=== PATIENT | male | born 1940 | race Caucasian/White ===

== ENCOUNTER → 2016-11-08 | Outpatient (CLI) | payer OTHER, MEDICARE ==
[~2016-11-08] MED LIST: ALL300 PO; ASPCH81 PO; CHOL100010 PO; CLR10 PO; CRG25 PO; CYAN10005 PO; CYAN30SU PO; DOCU-94 PO; FINA5TAB4 PO; GLC500 PO; HYG/25 PO; L-ME1CAP3 PO; MECL1TAB42 PO; MULT60CA PO; NMN10 PO; PSYL58.636 PO
[2016-11-08 10:59] LABS: MEAN CELL VOLUME 93.8 fL (80-100); MEAN CORPUSCULAR HEMOGLOBIN 32.5 pg (25-34); MEAN CORPUSCULAR HGB CONC 34.6 g/dl (32-36); MEAN PLATELET VOLUME 10.6 fL (7.4-10.4); PLATELET COUNT 227 K/uL (130-400); RED BLOOD COUNT 4.16 M/uL (4.7-6.1); WHITE BLOOD COUNT 12.28 K/uL (4.8-10.8)
[2016-11-08 11:17] LABS: BLOOD UREA NITROGEN 31 mg/dl (7-18); BUN/CREATININE RATIO 19.6 (10-20); CALCIUM 9.3 mg/dl (8.5-10.1); CARBON DIOXIDE 29 mmol/L (21-32); CHLORIDE 103 mmol/L (98-107); GLUCOSE 161 mg/dl (70-99); MAGNESIUM 1.6 mg/dl (1.8-2.4); PHOSPHORUS 2.8 mg/dl (2.5-4.9); POTASSIUM 4.1 mmol/L (3.5-5.1); SODIUM 137 mmol/L (136-145)
[2016-11-08 11:17] LABS: URINE APPEARANCE CLOUDY (CLEAR); URINE BILIRUBIN NEG (NEG); URINE COLOR DK YELLOW; URINE EPITHELIAL CELL AUTO >30 /lpf (0-5); URINE NITRITE NEG (NEG); URINE SPECIFIC GRAVITY 1.021 (1.000-1.030); UROBILINOGEN NEG (NEG)
[2016-11-08 11:33] LABS: MANUAL MICROSCOPIC REQUIRED? NO; REVIEW REQ? NO
== END | disposition home or self-care (01) ==
LOC: C.LABBC 09:21
PROVIDERS: ATTEND Internal Medicine Nephrology
DX: N18.3 Chronic kidney disease, stage 3 (moderate) (principal)

== ENCOUNTER → 2016-11-14 | Outpatient (CLI) | payer OTHER, MEDICARE ==
[2016-11-14 10:53] LABS: BASO % 0.2 %; BASO ABS # 0.03 K/uL (0-0.2); COMPLETE YES; EOS % 3.4 %; HEMATOCRIT 39.3 % (42-52); IG% 1.6 %; LYMPH % 12.9 %; LYMPH ABS # 1.65 K/uL (1.2-3.4); MEAN CELL VOLUME 95.6 fL (80-100); MEAN CORPUSCULAR HEMOGLOBIN 32.4 pg (25-34); MEAN CORPUSCULAR HGB CONC 33.8 g/dl (32-36); MEAN PLATELET VOLUME 10.6 fL (7.4-10.4); MONO % 7.8 %; NEUT % 74.1 %; PLATELET COUNT 228 K/uL (130-400); RED BLOOD COUNT 4.11 M/uL (4.7-6.1)
--- NOTE | 2016-11-14 11:21 | DIAGNOSTIC IMAGING REPORT ---
ABDOMEN 2VIEW W/PA CHEST RTN CLINICAL HISTORY: Rectal bleeding COMPARISON STUDY: 06/25/2015 FINDINGS: The erect chest reveals no free intraperitoneal air. There is no lobar consolidation. There is mild basilar interstitial thickening.] Supine views the abdomen reveal no abnormally dilated loops of large or small bowel. There are no transition zones indicate bowel obstruction. There is a right pelvic basin calcification, likely representing a phlebolith. IMPRESSION: No evidence of bowel obstruction. No evidence of free air. Electronically signed by: Ari Kearney M.D. 11/14/2016 11:19 AM Dictated Date/Time: 11/14/2016 11:19 AM
== END | disposition home or self-care (01) ==
LOC: C.RAD1850 09:37
PROVIDERS: ATTEND Family Medicine
DX: K62.5 Hemorrhage of anus and rectum (principal)

== ENCOUNTER → 2017-02-16 | Outpatient (CLI) | payer OTHER, MEDICARE ==
[2017-02-16 16:56] LABS: ALT/SGPT 19 U/L (12-78); BLOOD UREA NITROGEN 35 mg/dl (7-18); BUN/CREATININE RATIO 21.6 (10-20); CALCIUM 9.7 mg/dl (8.5-10.1); CARBON DIOXIDE 28 mmol/L (21-32); CHLORIDE 103 mmol/L (98-107); GLUCOSE 125 mg/dl (70-99); POTASSIUM 4.9 mmol/L (3.5-5.1); SODIUM 138 mmol/L (136-145)
[2017-02-16 16:59] LABS: CHOLESTEROL 146 mg/dl (0-200); CHOLESTEROL/HDL RATIO 4.2; HDL CHOLESTEROL 35 mg/dl; LDL CHOLESTEROL CALCULATED 80 mg/dl; TRIGLYCERIDES 154 mg/dl (0-150); VERY LOW DENSITY LIPOPROT CALC 31 mg/dl
[2017-02-17 06:04] LABS: ESTIMATED AVERAGE GLUCOSE 154 mg/dl; HA1C FLAG Normal (Normal)
== END ==
LOC: C.LABBC 12:40
PROVIDERS: ATTEND Family Medicine
DX: E11.9 Type 2 diabetes mellitus without complications (principal)

== ENCOUNTER → 2017-04-10 | Outpatient (CLI) | payer OTHER, MEDICARE ==
[2017-04-10 14:16] LABS: BLOOD UREA NITROGEN 31 mg/dl (7-18)
== END | disposition home or self-care (01) ==
LOC: C.LABBC 11:29
PROVIDERS: ATTEND Family Medicine
DX: E11.9 Type 2 diabetes mellitus without complications (principal)

== ENCOUNTER → 2017-04-15 | Day surgery (SDC) | payer OTHER, MEDICARE ==
[2017-04-14 13:12] VITALS: Ht 175.3 cm; Wt 145.0 kg
[~2017-04-15] VITALS: Ht 175.3 cm; Wt 145.0 kg
[~2017-04-15] MED LIST changes: -ASPCH81 PO; -CYAN10005 PO; -L-ME1CAP3 PO; +LIDOCAINE HCL 2% 2 ML VIAL (20MG/ML) ONE; +PROPOFOL IV EMULSION 10 MG/ML 20 ML VIAL IV ONE; +SODIUM CHLORIDE 0.9% 500ML 500 ML IV ONE
--- NOTE | 2017-04-15 11:35 | Endo History and Physical ---
History & Physical Date of Service: Apr 15, 2017. Chief Complaint: rectal bleeding Referring Physician: Dr. Cordero History of Present Illness 76 yo CM who presents for colonoscopy secondary to rectal bleeding. Past Medical History Diabetes, Arthritis, Pulmonary Emboli, Reflux, Cancer, CHF, Hypertension, Kidney Disease, Other, Depression Past Surgical History Hx Cardiac Surgery: No Hx Internal Defibrillator: No Hx Pacemaker: No Hx Abdominal Surgery: Yes (Cholecystectomy,) Hx of Implantable Prosthesis: No Hx Post-Op Nausea and Vomiting: No Hx Cancer Surgery: No Hx Thoracic Surgery: No Hx Orthopedic: Yes (B/L TKA, L wrist ganglion) Hx Urinary Tract Surgery: No Family History None Social History Smoking Status: Former Smoker Hx Substance Use: No Hx Alcohol Use: No Allergies Coded Allergies: ARPIT Inhibitors (Verified Allergy, Mild, Rash, 04/14/17) Diltiazem (Verified Allergy, Mild, UNSURE, 04/14/17) Latex1 -Allergic Contact Dermititis (Verified Allergy, Mild, HIVES, ) Warfarin (Verified Adverse Reaction, Mild, Emesis, 04/14/17) Oxycodone (Verified Adverse Reaction, Unknown, Hallucinations, 04/14/17) Current Medications Reported Home Medications Medications Dose Route/Sig Max Daily Dose Days Date Category Metamucil Fiber (Psyllium) 51.7 % Wilmer 1 Tab PO DAILY 04/14/17 Reported Preservision Areds 2 (Multiple Vitamins W/ Minerals) 1 Cap Cap 1 Cap PO BID 04/14/17 Reported Colace (Docusate Sodium) 100 Mg Cap 1 Cap PO TID 04/14/17 Reported Meclizine Hcl 25 Mg Tab 1 Tab PO TID PRN 10 04/14/17 Reported Namenda (Memantine) 10 Mg Tab 10 Mg PO QPM 04/14/17 Reported B-12 (Cyanocobalamin) 500 Mcg Sub 500 Mcg PO BID 04/14/17 Reported Proscar (Finasteride) 5 Mg Tab 5 Mg PO QAM 06/25/15 Reported Hygroton (Chlorthalidone) 25 Mg Tab 25 Mg PO QAM 03/13/15 Reported Claritin (Loratadine) 10 Mg Tab 10 Mg PO QAM 07/28/14 Reported Vitamin D (Cholecalciferol) 1,000 Inter.unit Tab 2,000 Inter.unit PO QAM 07/28/14 Reported Metformin HCl 500 Mg Tab 500 Mg PO BID 07/28/14 Reported Allopurinol 300 Mg Tab 300 Mg PO QAM 07/28/14 Reported Carvedilol 25 Mg Tab 25 Mg PO BID 07/28/14 Reported Vital Signs Weight (Kilograms): 145 Height (Feet): 5 Height (Inches): 9 Physical Exam General Appearance: WD/WN, no apparent distress Respiratory/Chest: Auscultation: breath sounds normal Cardiovascular: Heart Auscultation: RRR Abdomen: Bowel Sounds: normal Inspection & Palpation: soft, non-distended, no tenderness, guarding & rebound Assessment and Plan Assessment: 76 yo CM who presents for colonoscopy secondary to rectal bleeding. Plan: Proceed with colonoscopy.
--- NOTE | 2017-04-15 12:54 | GI REPORT ---
Procedure Date: 04/15/2017 12:15 PM Procedure: Colonoscopy Indications: Rectal bleeding Medicines: Monitored Anesthesia Care Complications: No immediate complications. Estimated Blood Loss: Estimated blood loss: none. Procedure: Pre-Anesthesia Assessment: - Prior to the procedure, a History and Physical was performed, and patient medications and allergies were reviewed. The patient's tolerance of previous anesthesia was also reviewed. The risks and benefits of the procedure and the sedation options and risks were discussed with the patient. All questions were answered, and informed consent was obtained. Prior Anticoagulants: The patient has taken no previous anticoagulant or antiplatelet agents. ASA Grade Assessment: III - A patient with severe systemic disease. After reviewing the risks and benefits, the patient was deemed in satisfactory condition to undergo the procedure. After I obtained informed consent, the scope was passed under direct vision. Throughout the procedure, the patient's blood pressure, pulse, and oxygen saturations were monitored continuously. The On-site loaner was introduced through the anus and advanced to the terminal ileum. The colonoscopy was performed without difficulty. The patient tolerated the procedure well. The quality of the bowel preparation was good. The terminal ileum, ileocecal valve, appendiceal orifice, and rectum were photographed. Findings: Localized mild inflammation characterized by erosions and erythema was found in the rectum. Biopsies were taken with a cold forceps for histology. Fluid aspiration for cytology was performed in the entire colon. Multiple small-mouthed diverticula were found in the sigmoid colon. Non-bleeding internal hemorrhoids were found during retroflexion. The hemorrhoids were small. Impression: - Localized mild inflammation was found in the rectum secondary to proctitis. Biopsied. - Diverticulosis in the sigmoid colon. - Non-bleeding internal hemorrhoids. - Fluid aspiration was performed. Recommendation: - Resume previous diet. - Continue present medications. - Repeat colonoscopy for surveillance based on pathology results. - Return to primary care physician as previously scheduled. Cristobal Mortensen, DO 04/15/2017 12:54:21 PM This report has been signed electronically. Note Initiated On: 04/15/2017 12:15 PM I attest to the content of the Intraoperative Record and orders documented therein, exceptions below
--- NOTE | 2017-04-15 12:59 | Discharge Instructions ---
Endoscopy Patient Instructions Date / Procedure(s) Performed Apr 15, 2017. Colonoscopy Allergy Information Coded Allergies: ARPIT Inhibitors (Verified Allergy, Mild, Rash, 04/14/17) Diltiazem (Verified Allergy, Mild, UNSURE, 04/14/17) Latex1 -Allergic Contact Dermititis (Verified Allergy, Mild, HIVES, ) Warfarin (Verified Adverse Reaction, Mild, Emesis, 04/14/17) Oxycodone (Verified Adverse Reaction, Unknown, Hallucinations, 04/14/17) Discharge Date / Findings Apr 15, 2017. Proctitis s/p biopsies Stool aspirate collected Diverticulosis Internal hemorrhoids Medication Instructions Stopped Medication(s): last dose Metformin yesterday OK to resume all medications today as prescribed Reported Home Medications Medications Dose Route/Sig Max Daily Dose Days Date Category Metamucil Fiber (Psyllium) 51.7 % Wilmer 1 Tab PO DAILY 04/14/17 Reported Preservision Areds 2 (Multiple Vitamins W/ Minerals) 1 Cap Cap 1 Cap PO BID 04/14/17 Reported Colace (Docusate Sodium) 100 Mg Cap 1 Cap PO TID 04/14/17 Reported Meclizine Hcl 25 Mg Tab 1 Tab PO TID PRN 10 04/14/17 Reported Namenda (Memantine) 10 Mg Tab 10 Mg PO QPM 04/14/17 Reported B-12 (Cyanocobalamin) 500 Mcg Sub 500 Mcg PO BID 04/14/17 Reported Proscar (Finasteride) 5 Mg Tab 5 Mg PO QAM 06/25/15 Reported Hygroton (Chlorthalidone) 25 Mg Tab 25 Mg PO QAM 03/13/15 Reported Claritin (Loratadine) 10 Mg Tab 10 Mg PO QAM 07/28/14 Reported Vitamin D (Cholecalciferol) 1,000 Inter.unit Tab 2,000 Inter.unit PO QAM 07/28/14 Reported Metformin HCl 500 Mg Tab 500 Mg PO BID 07/28/14 Reported Allopurinol 300 Mg Tab 300 Mg PO QAM 07/28/14 Reported Carvedilol 25 Mg Tab 25 Mg PO BID 07/28/14 Reported Provider Instructions Activity Restrictions - No exercising or heavy lifting for 24 hours. - Do not drink alcohol the day of the procedure. - Do not drive a car or operate machinery until the day after the procedure. - Do not make any important decisions or sign important papers in 24 hours after the procedure. Following Day: - Return to full activity which may include returning to work/school. Diet Start your diet with liquids and light foods (jello, soup, juice, toast). Then eat your usual diet if not nauseated. Treatment For Common After Affects For mild abdominal pain, bloating, or excessive gas: - Rest - Eat lightly - Lie on right side Follow-Up Information Follow-up with Dr. Cordero as scheduled Anesthesia Information What You Should Know You have had a procedure that required some medicine to reduce anxiety and discomfort. This treatment is called moderate sedation. After receiving the treatment, you may be sleepy, but you will be able to breathe on your own. The effects of the treatment may last for several hours. Follow these instructions along with Activity/Diet recommendations noted above: * Do NOT do anything where dizziness or clumsiness would be dangerous. * Rest quietly at home today, then you can be up and about tomorrow. * Have a responsible person stay with you the rest of today. * You may have had an I.V. today. If so, you may take the dressing off later today. Recommendations Call your doctor if: * Trouble breathing * Continuous vomiting for more than 24 hours * Temperature above 101 degrees * Severe abdominal pain or bloating * Pain not relieved by pain medicine ordered * There is increased drainage or redness from any incision * A large amount of rectal bleeding greater than 2-3 tablespoons. (If you had a polyp/s removed or have hemorrhoids, a small amount of blood - from the rectum is to be expected.) * You have any unanswered questions or concerns. IN THE EVENT OF A SERIOUS EMERGENCY, GO TO THE NEAREST EMERGENCY ROOM Your discharge instructions were prepared by provider Cristobal Mortensen. Patient Instructions Signature Page Johnson Bryant Patient (or Guardian) Signature/Date: I have read and understand the instructions given to me by my caregivers. Caregiver/RN/Doctor Signature/Date: The above-named patient and/or guardian has received patient instructions on this date. + Original Patient Signature Page (only) stays with chart. Please make copy for patient.
[2017-04-15 13:16] VITALS: BP 158/85; PULSE 73; O2SAT 97
--- NOTE | 2017-04-15 13:19 | Anesthesiology Progress Note ---
Anesthesia Post Op Note Date & Time Apr 15, 2017 at 13:19 Vital Signs Pain Intensity: 0 Vital Signs Past 12 Hours Date Time Temp Pulse Resp B/P (MAP) Pulse Ox O2 Delivery O2 Flow Rate FiO2 04/15/17 13:16 73 20 158/85 (109) 97 Room Air 04/15/17 13:00 73 20 160/59 (92) 96 Room Air 04/15/17 12:44 77 20 110/74 (86) 95 Room Air 04/15/17 11:34 36.8 75 20 143/71 (95) 96 Room Air Notes Mental Status: alert / awake / arousable, participated in evaluation Pt Amnestic to Procedure: Yes Nausea / Vomiting: adequately controlled Pain: adequately controlled Airway Patency, RR, SpO2: stable & adequate BP & HR: stable & adequate Hydration State: stable & adequate Anesthetic Complications: no major complications apparent
== END | disposition home or self-care (01) ==
LOC: C.GI 10:51
PROVIDERS: ATTEND Internal Medicine
DX: K62.5 Hemorrhage of anus and rectum (principal); K62.89 Other specified diseases of anus and rectum; K57.30 Diverticulosis of large intestine without perforation or abscess without bleeding; K64.8 Other hemorrhoids; I50.9 Heart failure, unspecified; I11.0 Hypertensive heart disease with heart failure; F32.9 Major depressive disorder, single episode, unspecified; N28.9 Disorder of kidney and ureter, unspecified; E11.29 Type 2 diabetes mellitus with other diabetic kidney complication; K21.9 Gastro-esophageal reflux disease without esophagitis; M19.90 Unspecified osteoarthritis, unspecified site; Z86.711 Personal history of pulmonary embolism; Z87.891 Personal history of nicotine dependence; Z79.84 Long term (current) use of oral hypoglycemic drugs; Z79.899 Other long term (current) drug therapy

== ENCOUNTER → 2017-04-17 | Outpatient (CLI) | payer OTHER, MEDICARE ==
[~2017-04-17] MED LIST changes: -LIDOCAINE HCL 2% 2 ML VIAL (20MG/ML) ONE; -PROPOFOL IV EMULSION 10 MG/ML 20 ML VIAL IV ONE; -SODIUM CHLORIDE 0.9% 500ML 500 ML IV ONE
[2017-04-17 13:26] LABS: BASO % 0.3 %; BASO ABS # 0.04 K/uL (0-0.2); COMPLETE YES; EOS % 2.6 %; HEMATOCRIT 38.2 % (42-52); LYMPH % 19.2 %; LYMPH ABS # 2.42 K/uL (1.2-3.4); MEAN CELL VOLUME 93.9 fL (80-100); MEAN CORPUSCULAR HEMOGLOBIN 32.2 pg (25-34); MEAN CORPUSCULAR HGB CONC 34.3 g/dl (32-36); MONO % 7.4 %; NEUT % 69.5 %; PLATELET COUNT 243 K/uL (130-400); RED BLOOD COUNT 4.07 M/uL (4.7-6.1); WHITE BLOOD COUNT 12.62 K/uL (4.8-10.8)
[2017-04-17 14:02] LABS: BLOOD UREA NITROGEN 29 mg/dl (7-18); BUN/CREATININE RATIO 19.3 (10-20); CALCIUM 9.6 mg/dl (8.5-10.1); CARBON DIOXIDE 29 mmol/L (21-32); CHLORIDE 99 mmol/L (98-107); GLUCOSE 152 mg/dl (70-99); POTASSIUM 3.7 mmol/L (3.5-5.1); SODIUM 137 mmol/L (136-145)
== END | disposition home or self-care (01) ==
LOC: C.LABBC 11:46
PROVIDERS: ATTEND Family Medicine
DX: R42 Dizziness and giddiness (principal); N18.3 Chronic kidney disease, stage 3 (moderate)

== ENCOUNTER → 2017-05-11 | Outpatient (CLI) | payer OTHER, MEDICARE ==
[2017-05-11 10:49] LABS: BASO % 0.1 %; BASO ABS # 0.02 K/uL (0-0.2); COMPLETE YES; EOS % 0.1 %; HEMATOCRIT 40.1 % (42-52); LYMPH % 14.1 %; LYMPH ABS # 2.25 K/uL (1.2-3.4); MEAN CELL VOLUME 93.9 fL (80-100); MEAN CORPUSCULAR HEMOGLOBIN 30.7 pg (25-34); MEAN CORPUSCULAR HGB CONC 32.7 g/dl (32-36); MONO % 5.3 %; NEUT % 79.4 %; PLATELET COUNT 292 K/uL (130-400); RED BLOOD COUNT 4.27 M/uL (4.7-6.1); WHITE BLOOD COUNT 15.92 K/uL (4.8-10.8)
[2017-05-11 11:08] LABS: MANUAL MICROSCOPIC REQUIRED? NO; REVIEW REQ? NO; URINE APPEARANCE CLEAR (CLEAR); URINE BILIRUBIN NEG (NEG); URINE COLOR YELLOW; URINE EPITHELIAL CELL AUTO >30 /lpf (0-5); URINE NITRITE NEG (NEG); UROBILINOGEN NEG (NEG)
[2017-05-11 11:52] LABS: URINE PROTIEN/CREAT RATIO 0.1 (0-0.2); URINE TOTAL PROTEIN 15.5 mg/dl (0-11.9)
[2017-05-11 11:59] LABS: BLOOD UREA NITROGEN 38 mg/dl (7-18); BUN/CREATININE RATIO 27.4 (10-20); C-REACTIVE PROTEIN 1.31 mg/dl (0-0.29); CALCIUM 9.7 mg/dl (8.5-10.1); CARBON DIOXIDE 27 mmol/L (21-32); CHLORIDE 101 mmol/L (98-107); GLUCOSE 146 mg/dl (70-99); POTASSIUM 4.2 mmol/L (3.5-5.1); SODIUM 139 mmol/L (136-145)
== END | disposition home or self-care (01) ==
LOC: C.LABBC 08:04
PROVIDERS: ATTEND Internal Medicine Nephrology
DX: N18.3 Chronic kidney disease, stage 3 (moderate) (principal); D72.829 Elevated white blood cell count, unspecified; K51.20 Ulcerative (chronic) proctitis without complications

== ENCOUNTER → 2017-07-23 | Outpatient (CLI) | payer OTHER, MEDICARE ==
[2017-07-23 13:23] LABS: BASO % 0.2 %; BASO ABS # 0.03 K/uL (0-0.2); COMPLETE YES; EOS % 5.1 %; HEMATOCRIT 39.3 % (42-52); IG% 1.6 %; LYMPH % 17.1 %; LYMPH ABS # 2.22 K/uL (1.2-3.4); MEAN CELL VOLUME 94.9 fL (80-100); MEAN CORPUSCULAR HEMOGLOBIN 31.4 pg (25-34); MEAN CORPUSCULAR HGB CONC 33.1 g/dl (32-36); MEAN PLATELET VOLUME 10.9 fL (7.4-10.4); MONO % 7.5 %; NEUT % 68.5 %; PLATELET COUNT 255 K/uL (130-400); RED BLOOD COUNT 4.14 M/uL (4.7-6.1); WHITE BLOOD COUNT 12.95 K/uL (4.8-10.8)
[2017-07-23 13:36] LABS: ALT/SGPT 30 U/L (12-78); BLOOD UREA NITROGEN 40 mg/dl (7-18); BUN/CREATININE RATIO 23.3 (10-20); CALCIUM 9.4 mg/dl (8.5-10.1); CARBON DIOXIDE 33 mmol/L (21-32); CHLORIDE 98 mmol/L (98-107); CREATININE 1.73 mg/dl (0.60-1.40); GLUCOSE 170 mg/dl (70-99); POTASSIUM 3.6 mmol/L (3.5-5.1); SODIUM 137 mmol/L (136-145)
[2017-07-23 13:39] LABS: ALB/GLOB RATIO 0.7 (0.9-2); ALKALINE PHOSPHATASE 97 U/L (45-117); AST/SGOT 18 U/L (15-37)
== END | disposition home or self-care (01) ==
LOC: C.LABBC 09:31
PROVIDERS: ATTEND Internal Medicine Hematology & Oncology
DX: D72.829 Elevated white blood cell count, unspecified (principal)

== ENCOUNTER → 2017-08-04 | Outpatient (CLI) | payer OTHER, MEDICARE ==
[~2017-08-04] MED LIST changes: +GADAVIST IV PRN
--- NOTE | 2017-08-04 10:35 | DIAGNOSTIC IMAGING REPORT ---
BRAIN COMBO CLINICAL HISTORY: R32 Urine [id number] Gait [id number] Memory lossevaluat COMPARISON STUDY: 06/25/2015 TECHNIQUE: Utilizing a 1.5 Chitra magnet and dedicated coil, multiplanar, multiecho imaging of the brain was performed pre and postcontrast administration. IV administration of 14 mL of Gadavist contrast was uneventful. FINDINGS: Diffusion images are negative for an acute ischemic insult. There are findings of mild cerebellar as well as cerebral atrophy with moderate chronic small vessel change. These findings are similar compared to the prior study. No evidence for abnormal postcontrast enhancement. Sella and parasellar regions are unremarkable. Internal auditory canals are symmetric. IMPRESSION: 1. Moderate age-related chronic small vessel change and atrophy. 2. No significant postcontrast enhancement. 3. No change from the prior exam. The above report was generated using voice recognition software. It may contain grammatical, syntax or spelling errors. Electronically signed by: Shivam Gutierrez M.D. 08/04/2017 10:34 AM Dictated Date/Time: 08/04/2017 10:27 AM
== END | disposition home or self-care (01) ==
LOC: C.MRI 09:24
PROVIDERS: ATTEND Psychiatry & Neurology Neurology
DX: R41.3 Other amnesia (principal); R48.2 Apraxia; R32 Unspecified urinary incontinence

== ENCOUNTER → 2017-09-22 | Outpatient (CLI) | payer OTHER, MEDICARE ==
[~2017-09-22] MED LIST changes: -GADAVIST IV PRN
[2017-09-22 13:04] LABS: HEMOGLOBIN A1C 6.8 % (4.5-5.6)
== END | disposition home or self-care (01) ==
LOC: C.LABBC 08:55
PROVIDERS: ATTEND Family Medicine
DX: E11.9 Type 2 diabetes mellitus without complications (principal)

== ENCOUNTER → 2017-09-28 | Outpatient (CLI) | payer OTHER, MEDICARE ==
[2017-09-28 17:10] LABS: BASO % 0.3 %; BASO ABS # 0.04 K/uL (0-0.2); EOS % 2.8 %; EOS ABS # 0.35 K/uL (0-0.5); HEMOGLOBIN 13.1 g/dL (14.0-18.0); IG# 0.08 K/uL (0.00-0.02); LYMPH % 22.6 %; LYMPH ABS # 2.78 K/uL (1.2-3.4); MEAN CORPUSCULAR HEMOGLOBIN 30.5 pg (25-34); MEAN CORPUSCULAR HGB CONC 32.8 g/dl (32-36); MEAN PLATELET VOLUME 10.6 fL (7.4-10.4); MONO % 7.7 %; MONO ABS # 0.95 K/uL (0.11-0.59); NEUT ABS # 8.12 K/uL (1.4-6.5); PLATELET COUNT 270 K/uL (130-400); RED CELL DISTRIBUTION WIDTH CV 14.9 % (11.5-14.5); RED CELL DISTRIBUTION WIDTH SD 50.2 fL (36.4-46.3); WHITE BLOOD COUNT 12.32 K/uL (4.8-10.8)
[2017-09-28 17:29] LABS: ALBUMIN 3.2 gm/dl (3.4-5.0); ALT/SGPT 19 U/L (12-78); AST/SGOT 14 U/L (15-37); BLOOD UREA NITROGEN 23 mg/dl (7-18); CARBON DIOXIDE 30 mmol/L (21-32); CREATININE 1.27 mg/dl (0.60-1.40); GLUCOSE 143 mg/dl (70-99); LIPASE 207 U/L (73-393); POTASSIUM 3.5 mmol/L (3.5-5.1); SODIUM 134 mmol/L (136-145); TOTAL PROTEIN 7.9 gm/dl (6.4-8.2)
[2017-09-28 17:30] LABS: ALKALINE PHOSPHATASE 95 U/L (45-117)
== END | disposition home or self-care (01) ==
LOC: C.LABBC 13:09
PROVIDERS: ATTEND Family Medicine
DX: R11.10 Vomiting, unspecified (principal)

== ENCOUNTER → 2017-11-02 | Outpatient (CLI) | payer OTHER, MEDICARE ==
[2017-11-02 17:31] LABS: ALBUMIN 3.2 gm/dl (3.4-5.0); BLOOD UREA NITROGEN 33 mg/dl (7-18); CALCIUM 9.8 mg/dl (8.5-10.1); CARBON DIOXIDE 28 mmol/L (21-32); CREATININE 1.62 mg/dl (0.60-1.40); GLUCOSE 143 mg/dl (70-99); PHOSPHORUS 3.7 mg/dl (2.5-4.9); SODIUM 134 mmol/L (136-145)
== END | disposition home or self-care (01) ==
LOC: C.LABBC 13:24
PROVIDERS: ATTEND Physician Assistant
DX: N18.3 Chronic kidney disease, stage 3 (moderate) (principal)

== ENCOUNTER 2020-06-01 11:21 | Inpatient (IN) ==
[2020-06-01] MEDS ORDERED: ALBUT/IPRATROP 3MG/0.5MG NEB 3 ML VIAL NEB STA (12:21)
[2020-06-01 12:34] LABS: Basophils # (auto) 0.02 K/uL (0-0.2); Basophils % (auto) 0.1 %; Hematocrit (blood only) 43.7 % (42-52); Immature Granulocytes # (auto) 0.14 K/uL (0.00-0.02); Immature Granulocytes % (auto) 0.7 %; Lymphocytes # (auto) 1.63 K/uL (1.2-3.4); Lymphocytes % (auto) 8.6 %; Mean Corpuscular Hemoglobin 31.5 pg (25-34); Mean Corpuscular Volume 98.4 fL (80-100); Mean Platelet Volume 11.8 fL (7.4-10.4); Monocytes % (auto) 6.8 %; Neutrophils # (auto) 15.91 K/uL (1.4-6.5); Neutrophils % (auto) 83.8 %; Platelet Count 265 K/uL (130-400); RDW Coefficient of Variation 14.6 % (11.5-14.5); RDW Standard Deviation 53.2 fL (36.4-46.3); Red Blood Count 4.44 M/uL (4.7-6.1)
[2020-06-01 12:40] LABS: INR 1.1 (0.9-1.1); Partial Thromboplastin Ratio 0.9; Partial Thromboplastin Time 25.4 Seconds (21.0-31.0); Prothrombin Time 11.4 Seconds (9.0-12.0)
[2020-06-01 12:56] LABS: Albumin Globulin Ratio 0.6 (0.9-2); Albumin Level 3.1 gm/dl (3.4-5.0); BUN Creatinine Ratio 19.3 (10-20); Bilirubin,Total 0.9 mg/dl (0.2-1); Calcium 9.6 mg/dl (8.5-10.1); Est GFR (African American) 31.1; Est GFR (Non-African American) 26.8; Globulin 4.9 gm/dl (2.5-4.0); Magnesium 2.1 mg/dl (1.8-2.4); Phosphorus 4.6 mg/dl (2.5-4.9); Potassium 4.9 mmol/L (3.5-5.1); Thyroid Stimulating Hormone 0.792 uIu/ml (0.300-4.500); Troponin I 6.53 ng/ml (0-0.045)
--- NOTE | 2020-06-01 13:34 | XRay Report ---
XR chest 1V portable CLINICAL HISTORY: Atypical chest pain COMPARISON STUDY: 04/06/2017 FINDINGS: The heart is enlarged. There is diffuse elevation of interstitium consistent with pulmonary edema. There are suspected bilateral pleural effusions.[ IMPRESSION: Interval development of a pulmonary edema pattern. Clinical and radiographic follow-up is recommended. ACT 112: Negative or not required by law. Electronically signed by: Ari Kearney M.D. 06/01/2020 1:32 PM
[2020-06-01 14:40] LABS: Adenovirus PCR Not Detected (NotDetected); Bordetella parapertussis PCR Not Detected (NotDetected); Bordetella pertussis PCR Not Detected (NotDetected); Chlamydia pneumoniae PCR Not Detected (NotDetected); Coronavirus 229E PCR Not Detected (NotDetected); Coronavirus CoV-2 (COVID19)PCR Not Detected (NotDetected); Coronavirus HKU1 PCR Not Detected (NotDetected); Coronavirus NL63 PCR Not Detected (NotDetected); Coronavirus OC43PCR Not Detected (NotDetected); Human Metapneumovirus PCR Not Detected (NotDetected); Influenza A PCR Not Detected (NotDetected); Influenza B PCR Not Detected (NotDetected); Mycoplasma pneumoniae PCR Not Detected (NotDetected); Parainfluenza Virus 1 PCR Not Detected (NotDetected); Parainfluenza Virus 2 PCR Not Detected (NotDetected); Parainfluenza Virus 3 PCR Not Detected (NotDetected); Parainfluenza Virus 4 PCR Not Detected (NotDetected); Respiratory Syncytial VirusPCR Not Detected (NotDetected); Rhinovirus/Enterovirus PCR Not Detected (NotDetected)
--- NOTE | 2020-06-01 17:00 | XCELERA ---
[id number]
--- NOTE | 2020-06-01 17:14 | Cardiology Consultation ---
Date of Consultation June 01, 2020 Assessment & Plan (1) Acute systolic heart failure: 2. NSTEMI 3. Acute on chronic renal insufficiency 4. Type 2 diabetes on oral therapy 5. Hypertension 6. History of Parkinson's dementia 7. History of ulcerative colitis Reviewed patient's limited echo obtained at bedside in ED. Has new severe LV dysfunction and suspect ischemic etiology with EKG/troponin suggestive of acute coronary syndrome. At present patient is chest pain-free, hemodynamically and electrically stable. No indication for emergent cardiac catheterization. In the setting of acute on chronic renal insufficiency and acute heart failure recommend holding off on catheterization at this time. Plan for admission to PCU. Start heparin, aspirin. In the setting of prior GI bleeding, possible surgical coronary artery disease we will hold off on adding clopidogrel. Resume low-dose beta-claude, start statin. Recommend diuresis with IV Lasix over the weekend. Tentatively plan on left and right heart catheterization on Thursday pending renal function. History of Present Illness History of Present Illness Mr. Bryatn is an 79-year-old man seen in the emergency department for acute heart failure and suspected ACS. Patient has a prior history of Parkinson's dementia, stage III chronic kidney disease, hypertension, ulcerative colitis with prior GI bleeding, Mnire's disease, morbid obesity, history of prior PE not on anticoagulation. No prior cardiac history. Last echocardiogram in 2014 showed normal LV function. He was seen today with his and they report that he has been increasingly short of breath over the last 3 days. Did have chest pressure briefly last night. Reports longstanding orthopnea may be worse over the last several days. Mild lower extremity edema. No fevers or chills. No palpitations. On arrival to ED normotensive, tachypneic, hypoxic to high 80s requiring 2 L oxygen. ECG showed sinus tachycardia with left axis deviation, subtle inferior and lateral ST depressions and borderline elevation in aVR. Chest x-ray showed pulmonary edema. proBNP elevated at 16,000. Initial troponin 6.5. At time of interview patient states he was feeling better than on arrival. Had only received albuterol. Denied any chest pain or chest pressure. Repeat ECG again showed subtle lateral ST depressions. Bedside echocardiogram showed severe LV global LV dysfunction sparing only his lateral wall. Allergies Allergy/AdvReac Type Severity Reaction Status Date / Time ARPIT Inhibitors Allergy Mild Rash Verified 06/01/20 15:37 diltiazem Allergy Mild UNSURE Verified 06/01/20 15:37 latex Allergy Mild HIVES Verified 06/01/20 15:37 acetaminophen [From Percocet] Allergy Verified 06/01/20 15:37 aspirin Allergy Verified 06/01/20 15:37 warfarin AdvReac Mild Emesis Verified 06/01/20 15:37 oxycodone AdvReac Unknown Hallucinati Verified 06/01/20 15:37 ons Home Medications Home Medications Medication Instructions Recorded Confirmed Type cholecalciferol (vitamin D3) 50 2,000 units PO DAILY cap 04/15/19 05/28/20 Hi story mcg (2,000 unit) capsule psyllium husk (with sugar) 3.4 2 tbs PO DAILY PRN ea 04/15/19 05/28/20 History gram oral powder packet mesalamine 0.375 gram 1.5 gm PO QAM 04/18/19 05/28/20 History capsule,extended release 24 hr ketoconazole 2 % topical cream 1 appln TOP DAILY PRN 04/19/19 05/28/20 History loratadine 10 mg tablet 10 mg PO DAILY 04/19/19 05/28/20 History menthol 0.44 %-zinc oxide 20.6 % 1 appln TOP QID PRN 04/19/19 05/28/20 History topical ointment triamcinolone acetonide 0.1 % 1 appln TOP DAILY PRN 04/19/19 05/28/20 History topical cream Diabetic Shoes #1 ea 04/20/20 05/28/20 Rx carvedilol 25 mg tablet 25 mg PO BID #180 tab 05/17/20 05/28/20 Rx memantine 10 mg tablet 10 mg PO BID #180 tab 05/17/20 05/28/20 Rx metformin 500 mg tablet 500 mg PO BID #180 tab 05/17/20 05/28/20 Rx carbidopa 25 mg-levodopa 100 mg 1 tab PO QID 90 Days #360 tab 05/22/20 05/28/20 Rx tablet allopurinol 300 mg PO QAM 06/01/20 06/01/20 History cyanocobalamin (vitamin B-12) 500 mcg PO BID 06/01/20 06/01/20 History [Vitamin B-12] donepezil 5 mg PO QAM 06/01/20 06/01/20 History finasteride 5 mg PO QAM 06/01/20 06/01/20 History triamterene-hydrochlorothiazid 1 tab PO QAM 06/01/20 06/01/20 History vit C,W-Iz-xlzbw-lutein-zeaxan 1 tab PO BID 06/01/20 06/01/20 History [PreserVision AREDS-2] Patient History Medical History (Updated 06/01/20 @ 17:11 by Humble Feldman MD) Sensorineural hearing loss (SNHL) of right ear with restricted hearing of left ear Sensorineural hearing loss of both ears Surgical History History of surgery on extremity Excision of ganglion cyst of left wrist History of tonsillectomy and adenoidectomy History of total knee arthroplasty Bilateral Hx of cataract surgery Hx of cholecystectomy Family History Father Epilepsy Deafness Sinusitis Brother Diabetes Sister Hypertension Unknown Breast cancer Myocardial infarction Colorectal cancer Bleeding disorder Grandmother Breast cancer Grandfather Myocardial infarction Mother FH: cancer of GI tract Colorectal cancer Hypertension Denies family history of Ovarian cancer Prostate cancer Social History Smoking Status: Former smoker Age Started Using Tobacco: 14; Age Quit Using Tobacco: 39; Cigarettes Per Day: 1.5; Second Hand Exposure: No; Hx Alcohol Use: Yes Alcohol type: beer Hx Substance Use: No Preferred Language: Argentine Communication Ability: Effective Visual Impairment: No Limitations Hearing Ability: Deaf marital status: Current Living Situation: Spouse current occupational status: retired Feels Safe at Home: Yes Childhood Exposure to Second-Hand Smoke: Yes Dental Care, Regularly: Yes Physical Activity Frequency: Does not Exercise Seatbelt Use: always Sunscreen Use: No Review of Systems Review of Systems: All systems reviewed & are unremarkable except as noted in HPI & below Physical Exam Physical Exam: General: Comfortable mildly dyspneic with conversation Eyes: Sclerae anicteric, extraocular movements intact HENT: Oropharynx clear mucous membranes moist Neck: Normal carotid upstrokes, unable to assess JVD Lungs: Crackles at bases bilaterally, no wheezing Cardiac: Regular, no murmurs Vascular: 2+ radial bilaterally Abdomen: Soft, obese, nontender Extremities: Well perfused, trace bilateral edema Skin: No rashes or lesions. Psych: Alert orient x3, normal affect and mood Results & Data ([facility]) Vital Signs (Past 12 Hours) Vital Signs Temp Pulse Pulse Resp BP BP Pulse Ox 06/01/20 16:00 95 H 26 H 113/82 96 06/01/20 14:24 99 H 28 H 127/78 96 06/01/20 14:20 99 H 27 H 96 06/01/20 14:10 100 H 99 H 24 128/88 96 06/01/20 14:00 101 H 26 H 96 06/01/20 13:50 106 H 30 H 95 06/01/20 13:40 101 H 26 H 06/01/20 13:30 100 H 27 H 96 06/01/20 13:20 102 H 27 H 95 06/01/20 13:10 102 H 32 H 89 L 06/01/20 13:00 101 H 29 H 91 06/01/20 12:50 103 H 27 H 94 06/01/20 12:40 103 H 24 95 06/01/20 12:30 104 H 33 H 96 06/01/20 12:23 105 H 19 95 06/01/20 11:48 102 H 26 H 128/88 96 06/01/20 11:42 88 L 06/01/20 11:41 104 H 27 H 128/88 95 06/01/20 11:28 97.3 F L 105 H 22 148/77 H 90 PG Care Time/CCT Total # of Minutes Spent Total Time Spent with Patient: Total time spent is greater than 50% in coordination of care (as documented) at patient's floor/unit and/or counseling patient: Coding Level of Care Code 88370 Initial Inpt Care Lvl 3 Diagnoses Acute systolic heart failure I50.21
[2020-06-01] MEDS ORDERED: GLUCOSE 10 TABS/TUBE PO PRN (17:32)
[2020-06-01] MEDS ORDERED: CARBOHYDRATES FOR HYPOGLYCEMIA PO PRN (17:32)
[2020-06-01] MEDS ORDERED: FUROSEMIDE 40 MG/4 ML VIAL IV STA (17:32)
[2020-06-01] MEDS ORDERED: ACETAMINOPHEN 325 MG TAB PO PRN (17:32)
[2020-06-01] MEDS ORDERED: ONDANSETRON INJ 2 MG/ML 2 ML VIAL IV PRN (17:32)
[2020-06-01] MEDS ORDERED: ASPIRIN 81 MG CHEW PO STA (17:32)
[2020-06-01] MEDS ORDERED: DEXTROSE 50% 50 ML SYRINGE IV PRN (17:32)
[2020-06-01] MEDS ORDERED: GLUCAGON FOR INJ 1 MG VIAL SQ PRN (17:32)
[2020-06-01] MEDS ORDERED: GLUCOSE 40% GEL 15 GM TUBE PO PRN (17:32)
[2020-06-01] MEDS ORDERED: HEPARIN IV BOLUS 8,000 UNITS in SYRINGE 0 ML IV ONE (18:00)
[2020-06-01] MEDS: CARBIDOPA/LEVODOPA 25/100MG TAB PO SCH ×2 (18:18→20:48)
--- NOTE | 2020-06-01 18:20 | Electrocardiogram Report ---
Test Reason : Blood Pressure : / mmHG Vent. Rate : 107 BPM Atrial Rate : 107 BPM P-R Int : 170 ms QRS Dur : 106 ms QT Int : 348 ms P-R-T Axes : 077 -69 105 degrees QTc Int : 464 ms Sinus tachycardia Left anterior fascicular block Poor R wave progression, consider anterior CA vs. lead placement vs. LVH Marked ST abnormality, possible inferior subendocardial injury Abnormal ECG Confirmed by Salomón Miner ([id number]) on 06/01/2020 6:20:09 PM Referred By: Confirmed By:Rory Miner
[2020-06-01] MEDS: INSULIN ASPART 100 UNITS/ML 3 ML PEN SC SCH ×2 (18:29→20:50)
[2020-06-01] MEDS: HEPARIN SODIUM/DEXTROSE 25,000 UNITS/500 ML BAG IV SCH (18:30)
--- NOTE | 2020-06-01 20:06 | Emergency Department Note ---
Impression & Plan Acute systolic heart failure, Acute non-ST elevation myocardial infarction (NSTEMI), Acute on chronic renal insufficiency, Hypoxia ED Provider Note NAME: MARA BRIDGES JR AGE: 79 SEX: M ARRIVES VIA: Walk-In INFORMANT: Patient, ED PROVIDER(S): Hollis Lennon MD CHIEF COMPLAINT: Shortness of breath PLAN: Disposition: Admit MEDICAL DECISION MAKING: The patient is a pleasant 79-year-old gentleman with a past medical history of CKD, parkinsonism, dementia, CAD, remote history of PE for which the patient is no longer on anticoagulation though the patient is a poor historian related to this, who presents emergency department for evaluation of increasing shortness of breath over the past several days where he feels that he is more short of breath when he attempts to lie flat. He denies any significant weight gain/water retention. 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 He denies any chest pain, nausea, vomiting, diarrhea or urinary symptoms. On arrival the patient is mildly dyspneic, afebrile with heart rate in the 107 blood pressure otherwise stable. He was noted to be hypoxic to 89% on room air and does not use oxygen normally. On exam the patient does have diminished breath sounds at the bases with a scant intermittent wheeze. There is 1+ bilateral lower extremity edema. Initial EKG demonstrates sinus tachycardia, 107 bpm with left anterior fascicular block, poor R wave progression and marked ST abnormality with depression noted inferior and laterally. aVR with questionable subtle elevation however most likely related to meandering baseline. There is no overt ST elevation. QTc 464, QRS 106. ST changes do appear new from prior on 06/26/2015. Chest x-ray demonstrates pulmonary edema. WBC 19K, nonspecific. H/H and platelets within normal limits. Glucose is 358 and initial lactic acid 3.1 however chemistry without acidosis. Creatinine is elevated at 2.2 which is elevated from the patient's recent values of around 1.6. AST slightly elevated at 52, nonspecific. Total bilirubin within normal limits. Procalcitonin 0.6. Respiratory bio fire was negative. Initial troponin is 6.5. Raising concern for NSTEMI. I did reevaluate the patient and he was reporting feeling improvement without any intervention however he did still appear somewhat labored in his work of breathing and so BiPAP was ordered. While he initially denied any chest pain. When reviewing his findings further he does admit that perhaps he has felt some chest pressure for several days. Given the patient's report of a history of PE this was considered however given the patient's acute on chronic renal failure we did prefer to defer CT at this time. I did perform a limited bedside cardiac ultrasound which was suboptimal in terms of views due to patient positioning and body habitus however there was no obvious RV strain/dilation. Moreover there did appear to be overt LV dilation and global LV wall motion abnormality with suspected moderate to severe reduction in EF. Review of the patient's record shows his last echo was in 2014 and had normal EF. Thus, given no evidence of right sided strain PE is thought to be less likely at this time. Suspect symptoms are more related to NSTEMI provoking ischemic cardiomyopathy. Patient was updated on plan for admission and he and his were agreeable. Case was discussed with Dr. Fried, [facility] hospitalist, who will evaluate the patient for admission. They will evaluate the patient and make decision on heparinization. Additionally unclear etiology to the patient's listed allergy to aspirin but they will address. Repeat EKG does appear somewhat improved with less pronounced ST abnormality. No overt ST elevation. Triage Nursing notes reviewed and agree them. Prior medical records reviewed Vital Signs: reviewed and remarkable for no significant abnormalities Differential diagnosis: Reactive airway disease, pneumonia, pneumothorax, COPD, CHF, infections, cardiac ischemia, pulmonary embolism, musculoskeletal, gastrointestinal, as well as other pathologies. ER treatment provided: See below. Diagnostics interpreted by me: ECG 1139: Initial EKG demonstrates sinus tachycardia, 107 bpm with left anterior fascicular block, poor R wave progression and marked ST abnormality with depression noted inferior and laterally. There is no overt ST elevation. QTc 464, QRS 106. ST changes do appear new from prior on 06/26/2015. ECG 1551: Normal sinus rhythm, 98 bpm, no ectopy, incomplete right bundle branch block, no overt ST elevation, ST abnormalities appear slightly improved. QTc 4 74, QRS 108. Cardiac Monitoring: An order for continuous cardiac monitoring was placed and demonstrated sinus tachycardia, 107 bpm, no ectopy. Laboratory studies: See below Imaging studies: XR chest 1V portable CLINICAL HISTORY: Atypical chest pain COMPARISON STUDY: 04/06/2017 FINDINGS: The heart is enlarged. There is diffuse elevation of interstitium consistent with pulmonary edema. There are suspected bilateral pleural effusion s.[ IMPRESSION: Interval development of a pulmonary edema pattern. Clinical and radiographic follow-up is recommended. Consultation(s): Case was discussed with Dr. Fried, [facility] hospitalist, who will evaluate the patient for admission. HPI: The patient is a pleasant 79-year-old gentleman with a past medical history of CKD, parkinsonism, dementia, CAD, remote history of PE for which the patient is no longer on anticoagulation though the patient is a poor historian related to this, who presents emergency department for evaluation of increasing shortness of breath over the past several days where he feels that he is more short of breath when he attempts to lie flat. He denies any significant weight gain/water retention. 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 He denies any chest pain, nausea, vomiting, diarrhea or urinary symptoms. ROS: See above HPI for pertinent positives & negatives. A total of 10 systems reviewed and were otherwise negative. PAST MEDICAL HISTORY:See Below PAST SURGICAL HISTORY:See Below FAMILY HISTORY:See Below SOCIAL HISTORY:See Below HOME MEDICATIONS:See Below ALLERGIES:See Below VITALS:See Below PHYSICAL EXAMINATION: GENERAL: Awake, alert, fatigued dyspneic-appearing, in no distress HENT: Normocephalic, atraumatic. Oropharynx unremarkable. EYES: Normal conjunctiva. Sclera non-icteric. NECK: Supple. No nuchal rigidity. FROM. No JVD. RESPIRATORY: Diminished breath sounds at the bases with scant intermittent wheeze. Mild increased work of breathing, improved somewhat with O2 nasal cannula. CARDIAC: Tachycardic rate, normal rhythm. Extremities warm and well perfused. Pulses equal. ABDOMEN: Soft, non-distended. No tenderness to palpation. No rebound or guard ing. No masses. RECTAL: Deferred. MUSCULOSKELETAL: Chest examination reveals no tenderness. The back is symmetrical on inspection without obvious abnormality. There is no CVA tenderness to palpation. No joint edema. LOWER EXTREMITIES: Calves are equal size bilaterally and non-tender. No edema. No discoloration. NEURO: Normal sensorium. No sensory or motor deficits noted. SKIN: No rash or jaundice noted. ED COURSE: Critical Care: I have personally spent greater than 65 minutes of critical care time in the direct management of this patient. This includes bedside care, interpretation of diagnostic studies, and testing, discussion with consultants, patient, and family members, and other required patient management activities. This 65 minutes is in excess of all separately billable procedures. Hollis Lennon MD Past Med/Surg History Medical History Sensorineural hearing loss (SNHL) of right ear with restricted hearing of left ear Sensorineural hearing loss of both ears Surgical History History of surgery on extremity Excision of ganglion cyst of left wrist History of tonsillectomy and adenoidectomy History of total knee arthroplasty Bilateral Hx of cataract surgery Hx of cholecystectomy Family History Father Epilepsy Deafness Sinusitis Brother Diabetes Sister Hypertension Unknown Breast cancer Myocardial infarction Colorectal cancer Bleeding disorder Grandmother Breast cancer Grandfather Myocardial infarction Mother FH: cancer of GI tract Colorectal cancer Hypertension Denies family history of Ovarian cancer Prostate cancer Social History Smoking Status: Former smoker Age Started Using Tobacco: 14; Age Quit Using Tobacco: 39; Cigarettes Per Day: 1.5; Second Hand Exposure: No; Do You Dip or Chew Tobacco: No; Tobacco Cessation Education Requested by Patient: No Hx Alcohol Use: No Hx Substance Use: No Preferred Language: Icelandic Communication Ability: Effective Visual Impairment: No Limitations Hearing Ability: Energy Sales Consultant Required: No Beliefs That Will Affect Care: None marital status: Current Living Situation: Spouse current occupational status: retired Feels Safe at Home: Yes Safety Concerns: Feels Safe At This Time Childhood Exposure to Second-Hand Smoke: Yes Dental Care, Regularly: Yes Physical Activity Frequency: Does not Exercise Seatbelt Use: always Sunscreen Use: No Assistive Devices: Denture - Upper, Denture - Lower, Glasses and Walker Assistive Devices Comment: glasses and dentures at home Allergies Allergies Allergy/AdvReac Type Severity Reaction Status Date / Time ARPIT Inhibitors Allergy Mild Rash Verified 06/01/20 15:37 diltiazem Allergy Mild UNSURE Verified 06/01/20 15:37 latex Allergy Mild HIVES Verified 06/01/20 15:37 acetaminophen [From Percocet] Allergy Verified 06/01/20 15:37 aspirin Allergy Verified 06/01/20 15:37 warfarin AdvReac Mild Emesis Verified 06/01/20 15:37 oxycodone AdvReac Unknown Hallucinati Verified 06/01/20 15:37 ons Home Meds Home Medications Medication Instructions Recorded Confirmed cholecalciferol (vitamin D3) 50 2,000 units PO QAM cap 04/15/19 06/01/20 mcg (2,000 unit) capsule psyllium husk (with sugar) 3.4 2 tbs PO QAM ea 04/15/19 06/01/20 gram oral powder packet mesalamine 0.375 gram 4 gm PO QAM 04/18/19 06/01/20 capsule,extended release 24 hr ketoconazole 2 % topical cream 1 appln TOP DAILY PRN 04/19/19 06/01/20 loratadine 10 mg tablet 10 mg PO QAM 04/19/19 06/01/20 menthol 0.44 %-zinc oxide 20.6 % 1 appln TOP QID PRN 04/19/19 06/01/20 topical ointment triamcinolone acetonide 0.1 % 1 appln TOP DAILY PRN 04/19/19 06/01/20 topical cream allopurinol 300 mg PO QAM 06/01/20 06/01/20 cyanocobalamin (vitamin B-12) 500 mcg PO BID 06/01/20 06/01/20 [Vitamin B-12] donepezil 5 mg PO QAM 06/01/20 06/01/20 finasteride 5 mg PO QAM 06/01/20 06/01/20 triamterene-hydrochlorothiazid 1 tab PO QAM 06/01/20 06/01/20 vit C,V-Qa-iodjk-lutein-zeaxan 1 tab PO BID 06/01/20 06/01/20 [PreserVision AREDS-2] Previous Rx's Medication Instructions Recorded Diabetic Shoes #1 ea 04/20/20 carvedilol 25 mg tablet 25 mg PO BID #180 tab 05/17/20 memantine 10 mg tablet 10 mg PO BID #180 tab 05/17/20 metformin 500 mg tablet 500 mg PO BID #180 tab 05/17/20 carbidopa 25 mg-levodopa 100 mg 1 tab PO QID 90 Days #360 tab 05/22/20 tablet Results & Data (ED) Vital Signs Vital Signs - 24 hr 06/01/20 11:28 06/01/20 11:41 06/01/20 11:42 Temperature 36.3 C L Temperature Source Oral Pulse Rate 105 H 104 H Pulse Rate [Apical] Pulse Rate from SpO2 Sensor 105 H Pulse Rhythm Pulse Rhythm [Apical] Pulse Strength [Apical] Respiratory Rate 22 27 H Respiratory Effort / Characteristics Non-Labored Spontaneous Respiratory Depth Normal Respiratory Pattern Regular Blood Pressure 148/77 H 128/88 Blood Pressure [Left Arm] Blood Pressure Mean 100 99 Blood Pressure Mean [Left Arm] Blood Pressure Position Sitting Blood Pressure Position [Left Arm] Pulse Oximetry 90 95 88 L Oxygen Delivery Method Room Air Room Air Oxygen Flow Rate Sepsis Recent Fever Within 48 Hours No Sepsis New/Unexplained Change in Mental Status N/A Sepsis Action Taken by Nursing No Action Required Oxygen Flow Rate - Titration 2 Pulse Oximetry Post Tiitration 94 06/01/20 11:48 06/01/20 12:23 06/01/20 12:30 Temperature Temperature Source Pulse Rate 105 H 104 H Pulse Rate [Apical] 102 H Pulse Rate from SpO2 Sensor 106 H 104 H Pulse Rhythm Pulse Rhythm [Apical] Regular Pulse Strength [Apical] Normal Respiratory Rate 26 H 19 33 H Respiratory Effort / Characteristics Non-Labored Respiratory Depth Normal Respiratory Pattern Regular Blood Pressure Blood Pressure [Left Arm] 128/88 Blood Pressure Mean Blood Pressure Mean [Left Arm] 101 Blood Pressure Position Blood Pressure Position [Left Arm] Sitting Pulse Oximetry 96 95 96 Oxygen Delivery Method Nasal Cannula Oxygen Flow Rate 3.5 Sepsis Recent Fever Within 48 Hours Sepsis New/Unexplained Change in Mental Status Sepsis Action Taken by Nursing Oxygen Flow Rate - Titration Pulse Oximetry Post Tiitration 06/01/20 12:40 06/01/20 12:50 06/01/20 13:00 Temperature Temperature Source Pulse Rate 103 H 103 H 101 H Pulse Rate [Apical] Pulse Rate from SpO2 Sensor 104 H 105 H 101 H Pulse Rhythm Pulse Rhythm [Apical] Pulse Strength [Apical] Respiratory Rate 24 27 H 29 H Respiratory Effort / Characteristics Respiratory Depth Respiratory Pattern Blood Pressure Blood Pressure [Left Arm] Blood Pressure Mean Blood Pressure Mean [Left Arm] Blood Pressure Position Blood Pressure Position [Left Arm] Pulse Oximetry 95 94 91 Oxygen Delivery Method Oxygen Flow Rate Sepsis Recent Fever Within 48 Hours Sepsis New/Unexplained Change in Mental Status Sepsis Action Taken by Nursing Oxygen Flow Rate - Titration Pulse Oximetry Post Tiitration 06/01/20 13:10 06/01/20 13:20 06/01/20 13:30 Temperature Temperature Source Pulse Rate 102 H 102 H 100 H Pulse Rate [Apical] Pulse Rate from SpO2 Sensor 103 H 102 H 100 H Pulse Rhythm Pulse Rhythm [Apical] Pulse Strength [Apical] Respiratory Rate 32 H 27 H 27 H Respiratory Effort / Characteristics Respiratory Depth Respiratory Pattern Blood Pressure Blood Pressure [Left Arm] Blood Pressure Mean Blood Pressure Mean [Left Arm] Blood Pressure Position Blood Pressure Position [Left Arm] Pulse Oximetry 89 L 95 96 Oxygen Delivery Method Oxygen Flow Rate Sepsis Recent Fever Within 48 Hours Sepsis New/Unexplained Change in Mental Status Sepsis Action Taken by Nursing Oxygen Flow Rate - Titration Pulse Oximetry Post Tiitration 06/01/20 13:40 06/01/20 13:50 06/01/20 14:00 Temperature Temperature Source Pulse Rate 101 H 106 H 101 H Pulse Rate [Apical] Pulse Rate from SpO2 Sensor 109 H 101 H Pulse Rhythm Pulse Rhythm [Apical] Pulse Strength [Apical] Respiratory Rate 26 H 30 H 26 H Respiratory Effort / Characteristics Respiratory Depth Respiratory Pattern Blood Pressure Blood Pressure [Left Arm] Blood Pressure Mean Blood Pressure Mean [Left Arm] Blood Pressure Position Blood Pressure Position [Left Arm] Pulse Oximetry 95 96 Oxygen Delivery Method Oxygen Flow Rate Sepsis Recent Fever Within 48 Hours Sepsis New/Unexplained Change in Mental Status Sepsis Action Taken by Nursing Oxygen Flow Rate - Titration Pulse Oximetry Post Tiitration 06/01/20 14:10 06/01/20 14:20 06/01/20 14:24 Temperature Temperature Source Pulse Rate 100 H 99 H 99 H Pulse Rate [Apical] 99 H Pulse Rate from SpO2 Sensor 100 H 99 H 99 H Pulse Rhythm Regular Pulse Rhythm [Apical] Pulse Strength [Apical] Respiratory Rate 24 27 H 28 H Respiratory Effort / Characteristics Respiratory Depth Respiratory Pattern Blood Pressure 127/78 Blood Pressure [Left Arm] 128/88 Blood Pressure Mean 97 Blood Pressure Mean [Left Arm] 101 Blood Pressure Position Blood Pressure Position [Left Arm] Pulse Oximetry 96 96 96 Oxygen Delivery Method Nasal Cannula Oxygen Flow Rate 2 Sepsis Recent Fever Within 48 Hours Sepsis New/Unexplained Change in Mental Status Sepsis Action Taken by Nursing Oxygen Flow Rate - Titration Pulse Oximetry Post Tiitration Laboratory Data Attestation: I reviewed the patient's lab results. Result diagrams: 06/01/20 11:45 06/01/20 11:45 Lab Results 06/01/20 06/01/20 06/01/20 Range/Units 11:45 11:45 11:45 WBC 19.00 H (4.8-10.8) K/uL RBC 4.44 L (4.7-6.1) M/uL Hgb 14.0 (14.0-18.0) g/dL Hct 43.7 (42-52) % MCV 98.4 (80-100) fL MCH 31.5 (25-34) pg MCHC 32.0 (32-36) g/dL RDW Std Deviation 53.2 H (36.4-46.3) fL RDW Coeff of Kristen 14.6 H (11.5-14.5) % Plt Count 265 (130-400) K/uL MPV 11.8 H (7.4-10.4) fL Immature Gran % (Auto) 0.7 % Neut % (Auto) 83.8 % Lymph % (Auto) 8.6 % Ferry % (Auto) 6.8 % Eos % (Auto) 0.0 % Baso % (Auto) 0.1 % Neut # (Auto) 15.91 H (1.4-6.5) K/uL Lymph # (Auto) 1.63 (1.2-3.4) K/uL Ferry # (Auto) 1.30 H (0.11-0.59) K/uL Eos # (Auto) 0.00 (0-0.5) K/uL Baso # (Auto) 0.02 (0-0.2) K/uL Immature Gran # (Auto) 0.14 H (0.00-0.02) K/uL PT 11.4 (9.0-12.0) Seconds INR 1.1 (0.9-1.1) APTT 25.4 (21.0-31.0) Seconds PTT Ratio 0.9 Sodium 135 L (136-145) mmol/L Potassium 4.9 (3.5-5.1) mmol/L Chloride 100 (98-107) mmol/L Carbon Dioxide 21 (21-32) mmol/L Anion Gap 14.0 H (3-11) BUN 43 H (7-18) mg/dl Creatinine 2.23 H (0.6-1.4) mg/dl Est Cr Clr Drug Dosing 37.0 ml/min Est GFR ( Amer) 31.1 Est GFR (Non-Af Amer) 26.8 BUN/Creatinine Ratio 19.3 (10-20) Glucose 358 H* (70-99) mg/dl Calcium 9.6 (8.5-10.1) mg/dl Phosphorus 4.6 (2.5-4.9) mg/dl Magnesium 2.1 (1.8-2.4) mg/dl Total Bilirubin 0.9 (0.2-1) mg/dl AST 52 H (15-37) U/L ALT 10 L (12-78) U/L Alkaline Phosphatase 92 (45-117) U/L Troponin I 6.530 H* (0-0.045) ng/ml NT-Pro-B Natriuret Pep 79866 H (0-1800) pg/ml Total Protein 8.0 (6.4-8.2) gm/dl Albumin 3.1 L (3.4-5.0) gm/dl Globulin 4.9 H (2.5-4.0) gm/dl Albumin/Globulin Ratio 0.6 L (0.9-2) Lipase 93 (73-393) U/L Beta-Hydroxybutyric Acd (0.2-2.81) mg/dl TSH 0.792 (0.300-4.500) uIu/ml Adenovirus (PCR) (NotDetected) B. pertussis DNA (PCR) (NotDetected) B.parapertussis DNA PCR (NotDetected) C. pneumoniae DNA (PCR) (NotDetected) Coronavirus OC43 (PCR) (NotDetected) Coronavirus HKU1 (PCR) (NotDetected) Coronavirus 229E (PCR) (NotDetected) COVID-19 PCR (NotDetected) Coronavirus NL63 (PCR) (NotDetected) Human Metapneumovir PCR (NotDetected) Influenza Type A (PCR) (NotDetected) Influenza Type B (PCR) (NotDetected) M. pneumoniae (PCR) (NotDetected) Parainfluenza 1 (PCR) (NotDetected) Parainfluenza 2 (PCR) (NotDetected) Parainfluenza 3 (PCR) (NotDetected) Parainfluenza 4 (PCR) (NotDetected) RSV (PCR) (NotDetected) Entero/Rhino (PCR) (NotDetected) 06/01/20 Range/Units 12:48 WBC (4.8-10.8) K/uL RBC (4.7-6.1) M/uL Hgb (14.0-18.0) g/dL Hct (42-52) % MCV (80-100) fL MCH (25-34) pg MCHC (32-36) g/dL RDW Std Deviation (36.4-46.3) fL RDW Coeff of Kristen (11.5-14.5) % Plt Count (130-400) K/uL MPV (7.4-10.4) fL Immature Gran % (Auto) % Neut % (Auto) % Lymph % (Auto) % Ferry % (Auto) % Eos % (Auto) % Baso % (Auto) % Neut # (Auto) (1.4-6.5) K/uL Lymph # (Auto) (1.2-3.4) K/uL Ferry # (Auto) (0.11-0.59) K/uL Eos # (Auto) (0-0.5) K/uL Baso # (Auto) (0-0.2) K/uL Immature Gran # (Auto) (0.00-0.02) K/uL PT (9.0-12.0) Seconds INR (0.9-1.1) APTT (21.0-31.0) Seconds PTT Ratio Sodium (136-145) mmol/L Potassium (3.5-5.1) mmol/L Chloride (98-107) mmol/L Carbon Dioxide (21-32) mmol/L Anion Gap (3-11) BUN (7-18) mg/dl Creatinine (0.6-1.4) mg/dl Est Cr Clr Drug Dosing ml/min Est GFR ( Amer) Est GFR (Non-Af Amer) BUN/Creatinine Ratio (10-20) Glucose (70-99) mg/dl Calcium (8.5-10.1) mg/dl Phosphorus (2.5-4.9) mg/dl Magnesium (1.8-2.4) mg/dl Total Bilirubin (0.2-1) mg/dl AST (15-37) U/L ALT (12-78) U/L Alkaline Phosphatase (45-117) U/L Troponin I (0-0.045) ng/ml NT-Pro-B Natriuret Pep (0-1800) pg/ml Total Protein (6.4-8.2) gm/dl Albumin (3.4-5.0) gm/dl Globulin (2.5-4.0) gm/dl Albumin/Globulin Ratio (0.9-2) Lipase (73-393) U/L Beta-Hydroxybutyric Acd (0.2-2.81) mg/dl TSH (0.300-4.500) uIu/ml Adenovirus (PCR) Not Detected (NotDetected) B. pertussis DNA (PCR) Not Detected (NotDetected) B.parapertussis DNA PCR Not Detected (NotDetected) C. pneumoniae DNA (PCR) Not Detected (NotDetected) Coronavirus OC43 (PCR) Not Detected (NotDetected) Coronavirus HKU1 (PCR) Not Detected (NotDetected) Coronavirus 229E (PCR) Not Detected (NotDetected) COVID-19 PCR Not Detected (NotDetected) Coronavirus NL63 (PCR) Not Detected (NotDetected) Human Metapneumovir PCR Not Detected (NotDetected) Influenza Type A (PCR) Not Detected (NotDetected) Influenza Type B (PCR) Not Detected (NotDetected) M. pneumoniae (PCR) Not Detected (NotDetected) Parainfluenza 1 (PCR) Not Detected (NotDetected) Parainfluenza 2 (PCR) Not Detected (NotDetected) Parainfluenza 3 (PCR) Not Detected (NotDetected) Parainfluenza 4 (PCR) Not Detected (NotDetected) RSV (PCR) Not Detected (NotDetected) Entero/Rhino (PCR) Not Detected (NotDetected) Administered Medications Carbidopa/Levodopa (Carbidopa/Levodopa 25/100mg Tab) 1 tab PO QID MIRIAN Stop: 07/01/20 17:44 Last Admin: 06/01/20 18:18 Dose: 1 tab Documented by: [id number] Heparin Sodium/Dextrose (Heparin Sodium/Dextrose) 25,000 units in 500 mls @ 36 mls/hr IV .[id number] [facility]; Protocol Stop: 07/01/20 18:14 Last Titration: 06/01/20 18:59 Dose: 1,800 units/hr, 36 mls/hr Documented by: [id number] Cosigned by: [id number] Admin: 06/01/20 18:30 Dose: 1,800 units/hr, 36 mls/hr Documented by: [id number] Cosigned by: [id number] Insulin Aspart (Insulin Aspart 100 Units/Ml 3 Ml Pen) 0 units SC ACHS MIRIAN Stop: 07/01/20 17:31 Last Admin: 06/01/20 18:29 Dose: 5 units Documented by: [id number] Cosigned by: [id number] Discontinued Medications Albuterol (Albut/Ipratrop 3mg/0.5mg Neb 3 Ml Vial) 3 ml NEB NOW STA Stop: 06/01/20 12:22 Last Admin: 06/01/20 12:57 Dose: 3 ml Documented by: [id number] Aspirin (Aspirin 81 Mg Chew) 324 mg PO NOW STA Stop: 06/01/20 17:33 Last Admin: 06/01/20 18:20 Dose: 324 mg Documented by: [id number] Furosemide (Furosemide 40 Mg/4 Ml Vial) 20 mg IV NOW STA Stop: 06/01/20 17:33 Last Admin: 06/01/20 18:34 Dose: 20 mg Documented by: [id number] Heparin Sodium/Dextrose (Heparin Iv Standard With Bolus) 1 ea IV Q15M [facility]; Protocol Stop: 06/01/20 18:23 Last Admin: 06/01/20 18:13 Dose: Not Given Documented by: [id number] Admin: 06/01/20 18:13 Dose: Not Given Documented by: [id number] Heparin Sodium (Porcine) 8,000 (units/ Syringe) 8 mls @ 10 mls/min IV NOW ONE Stop: 06/01/20 18:01 Last Admin: 06/01/20 18:30 Dose: 10 mls/min Documented by: [id number] Cosigned by: [id number] Discharge Plan Visit Data Chief Complaint: Shortness of Breath/Dyspnea Stated Complaint: SOB & SWEATING ED Provider: Hollis Lennon Discharge Problem: Acute systolic heart failure, Acute non-ST elevation myocardial infarction (NSTEMI), Acute on chronic renal insufficiency, Hypoxia Discharge Instructions Interventions: ED Discharge Assessment Last Done: 06/01/20 16:57
--- NOTE | 2020-06-01 20:26 | History & Physical Report ---
Date of Service June 01, 2020 Assessment & Plan (1) Acute non-ST elevation myocardial infarction (NSTEMI): Initial troponin was 6.5, then 15. EKG shows lateral ST depressions. I also see some ST elevations in aVR. The case was urgently discussed with Dr. Jeremias Feldman. Given he is chest pain free and has significant GEETA, it was opted to treat him as an NSTEMI. - ASA started - Heparin gtt - Already on max-dose carvedilol - Cardiology consulted -> Likely catheterization at some point this admission. (2) Acute on chronic renal insufficiency: Baseline Cr ~1.3. - Cr up to 2.2 on admission. Given acute systolic heart failure; assumed to be cardiorenal. - Given Lasix 20 mg IV x 1 - Monitor Cr and diurese further as able (3) Leukocytosis: Always runs slightly high, but WBC up to 19 on admission. No focal signs of infection. Possibly reactive from NSTEMI. - Monitor (4) Acute systolic heart failure: Echo shows LV EF as 20-25%. - Diurese as above (5) Dementia: reports it is mild. At bedside, the patient is pleasant, answers questions appropriately. - Continue home donepezil & memantine - Monitor (6) Ulcerative colitis: No symptoms today. - Continue home mesalamine & psyllium husk (7) Diabetes mellitus: - Hold home meds - Sliding scale insulin (8) Hypertension: BP presently 120/80. - Continue beta-claude - Hold triamterene-HCTZ while diuresing with Lasix (9) Parkinsonism: - Continue carbidopa-levodopa Admission and Anticipated Discharge Date Admission Date: June 01, 2020 History of Present Illness Primary Care Provider: Marnie Cordero MD Mr. Bryant has CKD and reports he has been short of breath for about 3 days. Also with increased leg swelling, though less prominent. Allergies Allergy/AdvReac Type Severity Reaction Status Date / Time ARPIT Inhibitors Allergy Mild Rash Verified 06/01/20 15:37 diltiazem Allergy Mild UNSURE Verified 06/01/20 15:37 latex Allergy Mild HIVES Verified 06/01/20 15:37 acetaminophen [From Percocet] Allergy Verified 06/01/20 15:37 aspirin Allergy Verified 06/01/20 15:37 warfarin AdvReac Mild Emesis Verified 06/01/20 15:37 oxycodone AdvReac Unknown Hallucinati Verified 06/01/20 15:37 ons Home Medications Home Medications Medication Instructions Recorded Confirmed Type cholecalciferol (vitamin D3) 50 2,000 units PO QAM cap 04/15/19 06/01/20 History mcg (2,000 unit) capsule psyllium husk (with sugar) 3.4 2 tbs PO QAM ea 04/15/19 06/01/20 History gram oral powder packet mesalamine 0.375 gram 4 gm PO QAM 04/18/19 06/01/20 History capsule,extended release 24 hr ketoconazole 2 % topical cream 1 appln TOP DAILY PRN 04/19/19 06/01/20 History loratadine 10 mg tablet 10 mg PO QAM 04/19/19 06/01/20 History menthol 0.44 %-zinc oxide 20.6 % 1 appln TOP QID PRN 04/19/19 06/01/20 History topical ointment triamcinolone acetonide 0.1 % 1 appln TOP DAILY PRN 04/19/19 06/01/20 History topical cream Diabetic Shoes #1 ea 04/20/20 05/28/20 Rx carvedilol 25 mg tablet 25 mg PO BID #180 tab 05/17/20 06/01/20 Rx memantine 10 mg tablet 10 mg PO BID #180 tab 05/17/20 06/01/20 Rx metformin 500 mg tablet 500 mg PO BID #180 tab 05/17/20 06/01/20 Rx carbidopa 25 mg-levodopa 100 mg 1 tab PO QID 90 Days #360 tab 05/22/20 06/01/20 Rx tablet allopurinol 300 mg PO QAM 06/01/20 06/01/20 History cyanocobalamin (vitamin B-12) 500 mcg PO BID 06/01/20 06/01/20 History [Vitamin B-12] donepezil 5 mg PO QAM 06/01/20 06/01/20 History finasteride 5 mg PO QAM 06/01/20 06/01/20 History triamterene-hydrochlorothiazid 1 tab PO QAM 06/01/20 06/01/20 History vit C,Z-Sc-rjgvq-lutein-zeaxan 1 tab PO BID 06/01/20 06/01/20 History [PreserVision AREDS-2] Past Med/Surg History Medical History Sensorineural hearing loss (SNHL) of right ear with restricted hearing of left ear Sensorineural hearing loss of both ears Surgical History History of surgery on extremity Excision of ganglion cyst of left wrist History of tonsillectomy and adenoidectomy History of total knee arthroplasty Bilateral Hx of cataract surgery Hx of cholecystectomy Family History Father Epilepsy Deafness Sinusitis Brother Diabetes Sister Hypertension Unknown Breast cancer Myocardial infarction Colorectal cancer Bleeding disorder Grandmother Breast cancer Grandfather Myocardial infarction Mother FH: cancer of GI tract Colorectal cancer Hypertension Denies family history of Ovarian cancer Prostate cancer Social History Smoking Status: Former smoker Age Started Using Tobacco: 14; Age Quit Using Tobacco: 39; Cigarettes Per Day: 1.5; Second Hand Exposure: No; Do You Dip or Chew Tobacco: No; Tobacco Cessation Education Requested by Patient: No Hx Alcohol Use: No Hx Substance Use: No Preferred Language: Faroese Communication Ability: Effective Visual Impairment: No Limitations 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 Required: No Beliefs That Will Affect Care: None marital status: Current Living Situation: Spouse current occupational status: retired Feels Safe at Home: Yes Safety Concerns: Feels Safe At This Time Childhood Exposure to Second-Hand Smoke: Yes Dental Care, Regularly: Yes Physical Activity Frequency: Does not Exercise Seatbelt Use: always Sunscreen Use: No Assistive Devices: Denture - Upper, Denture - Lower, Glasses and Walker Assistive Devices Comment: glasses and dentures at home Review of Systems Review of Systems: All systems reviewed & are unremarkable except as noted in HPI & below Physical Exam Constitutional: WD/WN, vitals as above Eyes: EOM intact bilaterally; no conjunctival abnormality ENMT: external ear and nose normal, oropharynx normal Neck: trachea midline, no thyromegaly normal visual inspection Respiratory: no respiratory distress Auscultation: + crackles Cardiovascular: RRR, no murmur, no edema Extremities: + edema Gastrointestinal (Abdomen): Inspection/Auscultation: abdomen normal to inspection; abdomen not distended Musculoskeletal: no cyanosis or clubbing, extremities motor strength 5/5 Skin: no rashes, warm and dry Neurologic: moves all extremities and awake Psychiatric: Orientation: alert, oriented to person and cooperative Results & Data Results & Data ([facility]) Vital Signs (Past 12 Hours) Vital Signs Temp Pulse Pulse Pulse Resp BP BP 06/01/20 19:27 36.4 C L 94 H 20 122/78 06/01/20 17:48 96 H 06/01/20 17:36 36 C L 96 H 22 112/71 06/01/20 16:00 95 H 26 H 113/82 06/01/20 14:24 99 H 28 H 127/78 06/01/20 14:20 99 H 27 H 06/01/20 14:10 100 H 99 H 24 128/88 06/01/20 14:00 101 H 26 H 06/01/20 13:50 106 H 30 H 06/01/20 13:40 101 H 26 H 06/01/20 13:30 100 H 27 H 06/01/20 13:20 102 H 27 H 06/01/20 13:10 102 H 32 H 06/01/20 13:00 101 H 29 H 06/01/20 12:50 103 H 27 H 06/01/20 12:40 103 H 24 06/01/20 12:30 104 H 33 H 06/01/20 12:23 105 H 19 06/01/20 11:48 102 H 26 H 128/88 06/01/20 11:42 06/01/20 11:41 104 H 27 H 128/88 06/01/20 11:28 36.3 C L 105 H 22 148/77 H Pulse Ox 06/01/20 19:27 92 06/01/20 17:48 06/01/20 17:36 93 06/01/20 16:00 96 06/01/20 14:24 96 06/01/20 14:20 96 06/01/20 14:10 96 06/01/20 14:00 96 06/01/20 13:50 95 06/01/20 13:40 06/01/20 13:30 96 06/01/20 13:20 95 06/01/20 13:10 89 L 06/01/20 13:00 91 06/01/20 12:50 94 06/01/20 12:40 95 06/01/20 12:30 96 06/01/20 12:23 95 06/01/20 11:48 96 06/01/20 11:42 88 L 06/01/20 11:41 95 06/01/20 11:28 90 PG Care Time/CCT Total # of Minutes Spent Total Time Spent with Patient: Total time spent is greater than 50% in coordination of care (as documented) at patient's floor/unit and/or counseling patient: Coding Level of Care Code 37525 Initial Inpt Care Lvl 3 Diagnoses Acute non-ST elevation myocardial infarction (NSTEMI) I21.4 Acute on chronic renal insufficiency N28.9; N18.9 Leukocytosis D72.829 Acute systolic heart failure I50.21 Dementia F03.90 Ulcerative colitis K51.90 Diabetes mellitus E11.9 Hypertension I10 Parkinsonism G20
[2020-06-01] MEDS: carvediloL 25 MG TAB PO SCH (20:49)
[2020-06-01] MEDS: MEMANTINE HCL 10 MG TAB PO SCH (20:49)
[2020-06-02 01:10] LABS: Partial Thromboplastin Ratio 3.9
[2020-06-02 01:19] LABS: Partial Thromboplastin Time 108.4 Seconds (21.0-31.0)
[2020-06-02] MEDS ORDERED: MICONAZOLE NITRATE POWDER 43 GM EXT PRN (01:54)
[2020-06-02] MEDS ORDERED: FUROSEMIDE 20 MG in SYRINGE 0 ML IV ONE (05:15)
[2020-06-02 08:20] LABS: Mean Corpuscular Hgb Conc 32.6 g/dL (32-36); Mean Corpuscular Volume 98.4 fL (80-100); Mean Platelet Volume 11.4 fL (7.4-10.4); Platelet Count 233 K/uL (130-400); RDW Coefficient of Variation 14.6 % (11.5-14.5); RDW Standard Deviation 52.5 fL (36.4-46.3); Red Blood Count 4.37 M/uL (4.7-6.1); White Blood Count 21.17 K/uL (4.8-10.8)
[2020-06-02 08:33] LABS: Partial Thromboplastin Ratio 1.4; Partial Thromboplastin Time 38.7 Seconds (21.0-31.0)
--- NOTE | 2020-06-02 08:34 | Hospitalist Progress Note ---
Date of Service June 02, 2020 Assessment & Plan (1) Acute non-ST elevation myocardial infarction (NSTEMI): Initial troponin was 6.5, then 15. ,case was urgently discussed with Dr. Jeremias Feldman. Given he is chest pain free and has significant GEETA, it was opted to treat him as an NSTEMI. - ASA started - Heparin gtt, but now with hematuria and possibly rectal bleeding with high ptt heparin held - Already on max-dose carvedilol - Cardiology consulted patient's family confirms he does not want aggressive care particularly does not want dialysis or intubation and concerns that cardiac catheterization if performed would precipitate worsening renal failure. Family is understanding and wishes for us to treat him best we can, we will add a statin when he is more stable Echocardiogram shows systolic heart failure with significantly depressed ejection fraction that significant valvular abnormalities (2) Acute on chronic renal insufficiency: Baseline Cr ~1.3. ckd3 - Cr up to 2.2 on admission. Given acute systolic heart failure; assumed to be cardiorenal. - Given Lasix 20 mg IV x 1 still has rales on examination he is saturating reasonably well on 3 L nasal cannula Echocardiogram shows an EF of 20 to 25% with severe global hypokinesis of left ventricle for forward flow may be the reason why he has such worsening renal failure - (3) Leukocytosis: Always runs slightly high, but WBC up to 19 on admission. No focal signs of infection. Possibly reactive from NSTEMI. - Monitor (4) Acute systolic heart failure: Echo shows LV EF as 20-25%. - Diurese cautiously with renal oversight (5) Dementia: reports it is mild. At bedside, the patient is pleasant, answers questions appropriately. - Continue home donepezil & memantine - Monitor (6) Ulcerative colitis: No symptoms today. - Continue home mesalamine & psyllium husk (7) Diabetes mellitus: - Hold home meds - Sliding scale insulin (8) Hypertension: BP presently 120/80. - Continue beta-claude - Hold triamterene-HCTZ with renal failure using parenteral loop diuretics (9) Parkinsonism: - Continue carbidopa-levodopa Admission and Anticipated Discharge Date Admission Date: June 01, 2020 Subjective Patient is pleasantly demented. He denies any particular chest discomfort of any kind. Physical examination he seems to have some bibasilar rales. His is present at the bedside and confirms he is DNR/DNI. His renal function prevent significant diuresis at this time however the patient states he would never want to go on dialysis and that would forego any consideration of doing a heart catheterization with such renal distress as it would likely precipitate renal failure. Cardiology is also seen the patient. Due to his hematuria and possibly some bright red blood per rectum his heparin drip was discontinued despite concern for him having an NSTEMI as he does have some dynamic EKG changes. The is aware of these issues and wishes for us to do the best we can with out being overly aggressive Review of Systems Review of Systems: Mild distress and fatigue no headache, blurry or double vision no speech or swallowing issues no chest pain, pressure or palpitations Mild shortness of breath, cough or wheezes no abdominal pain, nausea or vomiting, diarrhea or constipation no dysuria, hematuria or frequency no focal joint pain does have 1+ peripheral swelling no back pain, CVA tenderness or radicular pain Dark hematuria in his Garcia bag no focal signs of weakness or numbness or altered sensation Number impairment Physical Exam Physical Exam: The patient appeared well nourished and normally developed. Vital signs as documented. Head exam is normocephalic atraumatic no scleral icterus Neck is with 3 cm JVD, thyromegaly, or carotid bruits. Lungs are basilar crackles Cardiac exam, Rhythm is regular.. Systolic ejection murmur Abdominal exam reveals normal bowel sounds, soft non tender, no masses Extremities are 2+ edematous and both pedal pulses are present Neurologic exam is alert and oriented x2, no focal loss of strength or sensation Skin is without bruises or rashes does have hematuria in his Garcia Psychologically is with in transfer dementia and memory impairment Results & Data Results & Data ([facility]) Vital Signs (Past 12 Hours) Vital Signs Temp Pulse Pulse Resp BP BP Pulse Ox 06/02/20 07:35 97.2 F L 90 22 117/78 94 06/02/20 05:10 97.9 F 94 H 20 140/78 95 06/02/20 03:04 97.7 F 95 H 20 123/78 92 06/01/20 23:11 97.5 F L 84 20 109/72 92 06/01/20 22:19 84 PG Care Time/CCT Total # of Minutes Spent Total Time Spent with Patient: Total time spent is greater than 50% in coordination of care (as documented) at patient's floor/unit and/or counseling patient: Coding Level of Care Code 24242 Subseq Hosp Care Lvl 3 Diagnoses Acute non-ST elevation myocardial infarction (NSTEMI) I21.4 Acute on chronic renal insufficiency N28.9; N18.9 Leukocytosis D72.829 Acute systolic heart failure I50.21 Dementia F03.90 Ulcerative colitis K51.90 Diabetes mellitus E11.9 Hypertension I10 Parkinsonism G20
[2020-06-02] MEDS: INSULIN ASPART 100 UNITS/ML 3 ML PEN SC SCH ×4 (08:44→20:39)
[2020-06-02 08:47] LABS: BUN Creatinine Ratio 21.8 (10-20); Calcium 9.4 mg/dl (8.5-10.1); Creatinine Clr Calc Pharmacy 24.7 ml/min; Est GFR (African American) 22.3; Est GFR (Non-African American) 19.2; Magnesium 2.4 mg/dl (1.8-2.4); Potassium 5.6 mmol/L (3.5-5.1)
[2020-06-02] MEDS ORDERED: ASPIRIN 81 MG ECTAB PO SCH (09:00)
[2020-06-02] MEDS ORDERED: FINASTERIDE 5 MG TAB PO SCH (09:00)
[2020-06-02] MEDS ORDERED: DONEPEZIL HCL 5 MG TAB PO SCH (09:00)
[2020-06-02] MEDS ORDERED: allopurinoL 300 MG TAB PO SCH (09:00)
[2020-06-02] MEDS ORDERED: PATIROMER CALCIUM SORBITEX 8.4 GM PACK PO SCH (11:00)
[2020-06-02] MEDS: carvediloL 25 MG TAB PO SCH ×2 (11:11→20:40)
[2020-06-02] MEDS: MEMANTINE HCL 10 MG TAB PO SCH ×2 (11:12→20:39)
[2020-06-02] MEDS: CARBIDOPA/LEVODOPA 25/100MG TAB PO SCH ×4 (11:12→20:40)
--- NOTE | 2020-06-02 11:16 | Cardiology Progress Note ---
Date of Service June 02, 2020 Assessment & Plan Admission and Anticipated Discharge Date Admission Date: June 01, 2020 Subjective The patient's is by the bedside. She was very helpful and we had a long conversation with regards to risks and benefits and appropriate care. Her denies any chest pain or chest pressure. He denies being short of breath although he looks short of breath talking in sentences. He notes he does not quite feel as well as he has in the past. She notes he has been progressively more short of breath with activity. He does walk with a walker and walks very slowly given his Parkinson's disease. She notes over the last month or so he has been progressively more short of breath trying to walk to the mailbox or doing's small amounts of activity. He denies any lightheadedness or dizziness. He has a significant mount of secretions and seems to be choking somewhat on them. Denies any palpitations or fluttering. Denies any dark stools or black stools he has significant bleeding in his urine this morning with very poor urine output She notes he normally sleeps in a recliner because he is short of breath if he lays flat this is been a longstanding problem she is he does believe that his abdomen has been more distended recently and has had worsening lower extremity edema the rest of a complete review of systems is negative or unobtainable Results & Data ([facility]) Vital Signs (Past 12 Hours) Vital Signs Temp Pulse Pulse Resp BP BP Pulse Ox 06/02/20 08:00 94 H 06/02/20 07:35 36.2 C L 90 22 117/78 94 06/02/20 05:10 36.6 C 94 H 20 140/78 95 06/02/20 03:04 36.5 C 95 H 20 123/78 92 he is awake alert oriented to person not to place or time H EENT: Severely reduced carotid upstrokes no evidence of carotid bruits his jugular venous pressure cannot be assessed due to his neck size Lungs: Bilateral rhonchi with decreased breath sounds in the bases Heart: Regular rate and rhythm no appreciable murmurs rubs or gallops his heart sounds were distant Abdomen: Soft chronically distended positive bowel sounds nontender Extremities: Mild to moderate edema bilaterally Psychiatric his affect appeared flat Assessment & Plan (1) Acute systolic heart failure: With severe ischemic cardiomyopathy and ejection fraction in the range of 20 to 25% 2. NSTEMI with worsening lateral ST T changes 3. Acute on chronic renal insufficiency 4. Type 2 diabetes on oral therapy 5. Hypertension 6. History of Parkinson's dementia 7. History of ulcerative colitis I had a long discussion with the patient's . Their granddaughter is a post open-heart nurse in [place]. Given his medical conditions and renal dysfunction and Parkinson's disease with associated dementia they do not want aggressive therapy at this time. They would not want him intubated nor do they want CPR. I did inquire with regards to dialysis. She did not know how they would get him to dialysis if he needed it. I discussed with them given his current renal function if we decided on a heart catheterization he would be on dialysis long-term. Unfortunately he is more prerenal on his laboratory studies but he has worsening shortness of breath. He has significant hematuria and we have stopped his heparin drip. They are agreeable to continue with medical therapy at this point but I do not think they will want anything invasive. I would continue with his aspirin and carvedilol. At this point he is excessively prerenal I would reach out to the nephrology service to determine whether he may benefit from a Lasix drip or high-dose Lasix to try to improve his urine output. The challenges are that we may only worsen his renal function due to cardiorenal syndrome and his poor cardiac output secondary to his severe left ventricular dysfunction. His short-term prognosis is poor. In all likelihood based on his longstanding diabetes hypertension and renal disease he likely has severe three-vessel coronary artery disease. This was all discussed with his as well as Dr. Cardenas of the hospitalist service
[2020-06-02] MEDS: HEPARIN SODIUM/DEXTROSE 25,000 UNITS/500 ML BAG IV SCH (11:18)
[2020-06-02] MEDS ORDERED: FUROSEMIDE 40 MG in SYRINGE 0 ML IV ONE (15:00)
--- NOTE | 2020-06-03 07:13 | Discharge Summary ---
Date of Service June 03, 2020 pt was pronounced by 2 nurses at 0656 hours, cause of is acute kidney failure secondary to nstemi secondary to cardiomyopathy Admission HPI Per Admitting Provider Mr. Bryant has CKD and reports he has been short of breath for about 3 days. A lso with increased leg swelling, though less prominent. Discharge Data Consultations 06/01/20 15:04 ED Decision to Admit Stat 06/01/20 17:32 Consult Cardiology Routine Hospital Course (1) : acute kidney failure secondary to nstemi secondary to cardiomyopathy 0656 am 06/03/20 the remainder of the note is from earlier in this hospital stay (2) Acute non-ST elevation myocardial infarction (NSTEMI): Initial troponin was 6.5, then 15. ,case was urgently discussed with Dr. Jeremias Feldman. He has significant GEETA, concurrnently has NSTEMI. - ASA started, conrtinue carvedilol - Cardiology consulted patient's family confirms he does not want aggressive care particularly does not want dialysis or intubation and concerns that cardiac catheterization if performed would precipitate worsening renal failure. Family is understanding and wishes for us to treat him best we can, we will add a statin when he is more stable Echocardiogram shows systolic heart failure with significantly depressed ejection fraction that significant valvular abnormalities (3) Acute on chronic renal insufficiency: Baseline Cr ~1.3. ckd3 - Cr up to 2.2 on admission. Given acute systolic heart failure; assumed to be cardiorenal. - Echocardiogram shows an EF of 20 to 25% with severe global hypokinesis of left ventricle - (4) Leukocytosis: (5) Acute systolic heart failure: Echo shows LV EF as 20-25%. (6) Dementia: (7) Ulcerative colitis: (8) Diabetes mellitus: (9) Hypertension: (10) Parkinsonism: Coding Level of Care Code D/C Day Management <30 mins Diagnoses R99 Acute non-ST elevation myocardial infarction (NSTEMI) I21.4 Acute on chronic renal insufficiency N28.9; N18.9 Leukocytosis D72.829 Acute systolic heart failure I50.21 Dementia F03.90 Ulcerative colitis K51.90 Diabetes mellitus E11.9 Hypertension I10 Parkinsonism G20
[2020-06-03] MEDS ORDERED: FUROSEMIDE 20 MG in SYRINGE 0 ML IV ONE (07:15)
--- NOTE | 2020-06-03 07:22 | Discharge Summary ---
Date of Service June 03, 2020 Admission HPI Per Admitting Provider Mr. Bryant has CKD and reports he has been short of breath for about 3 days. Also with increased leg swelling, though less prominent. Principal Diagnosis acute kidney failure secondary to nstemi secondary to cardiomyopathy Discharge Exam PT pronounced at 0656 06/03/2020 Discharge Data Allergies Allergy/AdvReac Type Severity Reaction Status Date / Time ARPIT Inhibitors Allergy Mild Rash Verified 06/01/20 15:37 diltiazem Allergy Mild UNSURE Verified 06/01/20 15:37 latex Allergy Mild HIVES Verified 06/01/20 15:37 acetaminophen [From Percocet] Allergy Verified 06/01/20 15:37 aspirin Allergy Verified 06/01/20 15:37 warfarin AdvReac Mild Emesis Verified 06/01/20 15:37 oxycodone AdvReac Unknown Hallucinati Verified 06/01/20 15:37 ons Consultations 06/01/20 15:04 ED Decision to Admit Stat 06/01/20 17:32 Consult Cardiology Routine Hospital Course (1) : acute kidney failure secondary to nstemi secondary to cardiomyopathy 0656 am 06/03/20, pronounced by two nurses the remainder of the note is from earlier in this hospital stay (2) Acute non-ST elevation myocardial infarction (NSTEMI): Initial troponin was 6.5, then 15. ,case was urgently discussed with Dr. Jeremias Feldman. He has significant GEETA, concurrnently has NSTEMI. - ASA started, conrtinue carvedilol - Cardiology consulted patient's family confirms he does not want aggressive care particularly does not want dialysis or intubation and concerns that cardiac catheterization if performed would precipitate worsening renal failure. Family is understanding and wishes for us to treat him best we can, we will add a statin when he is more stable Echocardiogram shows systolic heart failure with significantly depressed ejection fraction that significant valvular abnormalities (3) Acute on chronic renal insufficiency: Baseline Cr ~1.3. ckd3 - Cr up to 2.2 on admission. Given acute systolic heart failure; assumed to be cardiorenal. - Echocardiogram shows an EF of 20 to 25% with severe global hypokinesis of left ventricle - (4) Leukocytosis: Always runs slightly high, but WBC up to 19 on admission. No focal signs of infection. Possibly reactive from NSTEMI. - Monitor (5) Acute systolic heart failure: Echo shows LV EF as 20-25%. (6) Dementia: reports it is mild. At bedside, the patient is pleasant, answers questions appropriately. - Continue home donepezil & memantine - Monitor (7) Ulcerative colitis: No symptoms today. - Continue home mesalamine & psyllium husk (8) Diabetes mellitus: - Hold home meds - Sliding scale insulin (9) Hypertension: BP presently 120/80. - Continue beta-claude - Hold triamterene-HCTZ with renal failure using parenteral loop diuretics (10) Parkinsonism: - Continue carbidopa-levodopa Total Time Total Time Spent Total Time Spent (In Minutes): less than 30 minutes Discharge Plan Discharge Items Reason For Visit: SOB, NSTEMI Medications and DC Order Prescriptions: No Action carvedilol 25 mg tablet 25 mg PO BID Qty: 180 RF: 1 memantine 10 mg tablet 10 mg PO BID Qty: 180 RF: 1 metformin 500 mg tablet 500 mg PO BID Qty: 180 RF: 1 carbidopa-levodopa 25-100 mg tablet 1 tab PO QID 90 Days Qty: 360 RF: 1 cholecalciferol (vitamin D3) 2,000 unit capsule 2,000 units PO QAM RF: 0 psyllium husk (with sugar) 3.4 gram powder in packet 2 tbs PO QAM RF: 0 Apriso 0.375 gram capsule,extended release 24hr 4 gm PO QAM RF: 0 ketoconazole 2 % cream 1 appln TOP DAILY PRN (Reason: .) RF: 0 Calmoseptine 0.44-20.6 % ointment 1 appln TOP QID PRN (Reason: .) RF: 0 loratadine [Claritin] 10 mg tablet 10 mg PO QAM RF: 0 triamcinolone acetonide 0.1 % cream 1 appln TOP DAILY PRN (Reason: .) RF: 0 (DME) Diabetic Shoes Misc See Rx Instructions .ROUTE .MEDSUPPLY Qty: 1 RF: 0 PreserVision AREDS-2 [id number] [id number] Capsule 1 tab PO BID RF: 0 cyanocobalamin (vitamin B-12) [Vitamin B-12] 500 mcg Tablet 500 mcg PO BID RF: 0 donepezil 5 mg tablet 5 mg PO QAM RF: 0 triamterene-hydrochlorothiazid 37.5-25 mg tablet 1 tab PO QAM RF: 0 allopurinol 300 mg tablet 300 mg PO QAM RF: 0 finasteride 5 mg tablet 5 mg PO QAM RF: 0 Admission Data Admit Date/Time: 06/01/20 16:00 Attending Provider: Luc Giron Admit Provider: Chilo Fried Primary Care Provider: Marnie Cordero Other Providers: Chilo Fried ; Humble Feldman Coding Level of Care Code D/C Day Management <30 mins Diagnoses R99 Acute non-ST elevation myocardial infarction (NSTEMI) I21.4 Acute on chronic renal insufficiency N28.9; N18.9 Leukocytosis D72.829 Acute systolic heart failure I50.21 Dementia F03.90 Ulcerative colitis K51.90 Diabetes mellitus E11.9 Hypertension I10 Parkinsonism G20
[2020-06-03 08:31] LABS: BUN Creatinine Ratio 21.6 (10-20); Calcium 9.1 mg/dl (8.5-10.1); Creatinine Clr Calc Pharmacy 16.1 ml/min; Est GFR (African American) 13.3; Est GFR (Non-African American) 11.5
--- NOTE | 2020-06-03 12:22 | Electrocardiogram Report ---
Test Reason : Blood Pressure : / mmHG Vent. Rate : 088 BPM Atrial Rate : 088 BPM P-R Int : 174 ms QRS Dur : 108 ms QT Int : 382 ms P-R-T Axes : 064 -57 156 degrees QTc Int : 462 ms Normal sinus rhythm Left anterior fascicular block Anterior infarct (cited on or before 01-JUN-2020) Abnormal ECG When compared with ECG of 01-JUN-2020 15:51, (unconfirmed) ST depression in leads V4-V6 is worse suggesting worsening ischemia Confirmed by David Cervantes ([id number]) on 06/03/2020 12:21:55 PM Referred By: REFERRED SELF Confirmed By:David Cervantes
--- NOTE | 2020-06-04 09:54 | Electrocardiogram Report ---
Test Reason : Blood Pressure : / mmHG Vent. Rate : 098 BPM Atrial Rate : 098 BPM P-R Int : 170 ms QRS Dur : 108 ms QT Int : 372 ms P-R-T Axes : 068 -55 118 degrees QTc Int : 474 ms Normal sinus rhythm Left axis deviation Incomplete right bundle branch block Anteroseptal infarct (cited on or before 01-JUN-2020) Abnormal ECG When compared with ECG of 01-JUN-2020 11:39, No significant change was found Confirmed by Laz Bear ([id number]) on 06/04/2020 9:54:18 AM Referred By: REFERRED SELF Confirmed By:Laz Bear
== END 2020-06-03 08:49 | disposition expired ==
LOC: ED 11:21 → 2N 16:00 → SUATTDRO 16:00